=== PATIENT | male | born 1950 | race Asian ===

== ENCOUNTER → 2019-10-03 | Outpatient (CLI) | payer MEDICARE, BC ==
[~2019-10-03] MED LIST: LEVOTHYROXINE50 MCG PO; [UNRECOGNIZED DRUG - OTHER] PO
--- NOTE | 2019-10-03 14:56 | Diagnostic Imaging Report ---
TECHNIQUE: Magnetic resonance imaging of the RIGHT ELBOW was performed WITHOUT injected contrast. HISTORY: Pain COMPARISON: None available. FINDINGS: Ligaments and tendons: The medial and lateral collateral ligament complexes are intact. The biceps and brachialis is intact. Tendinopathy of the common flexor and pronator origins with partial tearing, greater involving the extensor origin. Ulnar nerve: Normal, and in groove. Bone and bone marrow: No focal or infiltrative bone marrow replacing abnormality. No acute fracture. Articular cartilage: High-grade cartilage loss. Small joint effusion. Soft tissues: Otherwise, unremarkable. 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 Signed by: Dr. Brown Govea M.D. on 10/03/2019 2:52 PM
== END ==
LOC: MRI 13:20
PROVIDERS: ATTEND Specialist
DX: M67.321 Transient synovitis, right elbow (principal)

== ENCOUNTER 2020-02-20 14:59 | Outpatient (RCR) | payer MEDICARE, BC | END 2020-02-21 | LOC: PT 14:59 | PROVIDERS: ATTEND Specialist | DX: M47.896 Other spondylosis, lumbar region (principal) ==

== ENCOUNTER 2020-03-05 15:00 | Outpatient (RCR) | payer MEDICARE, BC | END 2020-03-22 | LOC: PT 15:00 | PROVIDERS: ATTEND Specialist | DX: M47.896 Other spondylosis, lumbar region (principal) ==

== ENCOUNTER 2020-03-23 13:11 | Outpatient (RCR) | payer MEDICARE, BC | END 2020-04-22 | LOC: PT 13:11 | PROVIDERS: ATTEND Specialist | DX: M47.816 Spondylosis without myelopathy or radiculopathy, lumbar region (principal) | CPT/HCPCS: 97139 ==

== ENCOUNTER → 2022-02-20 | Outpatient (RCR) | payer MEDICARE, BC | LOC: PT 02-14 14:03 | PROVIDERS: ATTEND Specialist | DX: M43.16 Spondylolisthesis, lumbar region (principal) ==

== ENCOUNTER → 2022-03-22 | Outpatient (RCR) | payer MEDICARE, BC | LOC: PT 02-21 08:05 | PROVIDERS: ATTEND Specialist | DX: M43.16 Spondylolisthesis, lumbar region (principal) ==